=== PATIENT | female | born 1995 | race Caucasian/White ===

== ENCOUNTER 2023-11-19 13:05 | Emergency (ER) | payer SELFPAY ==
[2023-11-19 13:08] VITALS: BP 151/73
[2023-11-19 13:33] LABS: % Basophils 0.3 % (0-2); % Eosinophils 1.2 % (0-6); % Immature Granulocytes 0.3 % (0-0.5); % Lymphocytes 18.3 % (20.5-51.1); % Monocytes 7.1 % (1.7-9.3); % Neutrophils 72.8 % (42.2-75.2); Absolute Eosinophils 0.1 10^3/uL (0-0.7); Absolute Lymphocytes 1.7 10^3/uL (1.2-3.4); Absolute Monocytes 0.7 10^3/uL (0.1-0.6); Absolute Neutrophils 6.9 10^3/uL (1.4-6.5); Hematocrit 38.5 % (37.0-47.0); Hemoglobin 13.3 g/dL (12.0-16.0); Mean Corp Hgb Conc. 34.5 g/dL (33.0-37.0); Mean Corpuscular Hgb 29.6 pg (27.0-31.0); Mean Corpuscular Volume 85.7 fL (81.0-99.0); Mean Platelet Volume 10.2 fL (7.4-10.4); Nucleated Red Blood Cells % 0 %; Platelet Count 256 10^3/uL (130-400); Red Blood Cell Count 4.49 10^6/uL (4.20-5.40); Red Cell Dist. Width 12.5 % (11.5-14.5); White Blood Cell Count 9.5 10^3/uL (4.8-10.8)
[2023-11-19 13:46] LABS: ALT (SGPT) 16 U/L (0-35); AST (SGOT) 26 U/L (14-36); Albumin 4.3 g/dl (3.5-5.0); Alkaline Phosphatase 60 U/L (38-126); Blood Urea Nitrogen 11 mg/dl (7-17); Calcium 9.7 mg/dl (8.4-10.2); Carbon Dioxide 23 mmol/L (22-30); Chloride 102 mmol/L (98-107); Glucose 118 mg/dl (70-99); Potassium 4.2 mmol/L (3.5-5.1); Sodium 133 mmol/L (135-145); Total Bilirubin 0.7 mg/dl (0.2-1.3); Total Protein 6.9 g/dl (6.3-8.2); eGFR > 60.00
[2023-11-19 13:47] LABS: HCG, Serum Qualitative Screen Positive
--- NOTE | 2023-11-19 14:58 | ED.GENMED ---
History of Present Illness
<Katy Humphries PA-C - Last Filed: 11/19/23 20:10>
General
Chief Complaint: Problems
Source: patient
Exam Limitations: none
Time Seen by Provider: 11/19/23 14:58
Nursing documentation reviewed up to this point in time: agreed with
History of Present Illness
History of Present Illness:
This is a 28 y/o female with no past medical history presenting emergency department today with concerns of vaginal bleeding and right-sided pelvic cramping for the past 2 days. Patient estimates she is 5 weeks . Patient's last
menstrual period was November 05. Patient states that yesterday, she got sudden onset of sharp cramping in the right and she started to have bright red bleeding after that with passage of some clots. Patient states that today the bleeding has slowed
but now is brown in color. Patient 1 prior in the past in which she had a miscarriage. Patient does not take any contraceptive currently, no IUD in place. Patient is A positive blood type noted on previous lab work. Patient notes some
mild associated nausea but denies any fevers or chills. Denies any diarrhea or constipation. Patient denies any previous abdominal surgeries. Patient does not have a [facility] that she follows with. Patient is denying anything for pain at this time.
Patient denies any allergies to medications. Patient states that she is , she wishes to be terminated
Past History
<Katy Humphries PA-C - Last Filed: 11/19/23 20:10>
Past History
ED Past Medical History: Arrthythmia (Palpitations); Negative HTN, Hypercholesterolemia or NIDDM
ED Past Surgical History: None
Social History
Tobacco: Former smoker
Alcohol: None
Personal: Single
Living: with family
Employment: Employed
Family History
Family History: Other (Noncontributory)
Review of Systems
<Katy Humphries PA-C - Last Filed: 11/19/23 20:10>
Review of Systems
All Other Systems: ROS reviewed and negative except as documented in HPI and ROS
Phy Exam
<Katy Humphries PA-C - Last Filed: 11/19/23 20:10>
Physical Exam
Physical Exam:
General: Patient is well appearing and in no acute distress; non-toxic
Skin: Warm and dry, no rashes or lesions
Head: Normocephalic, atraumatic
Eyes: Sclera non-icteric. EOMs intact. PERRLA.
Cardiac: Regular rate and rhythm, no murmurs
Peripheral Vascular: No lower extremity swelling or edema
Pulm: Normal respiratory effort, no wheezes, rales, rhonchi
Abdomen: No abdominal tenderness to palpation, some mild right sided pelvic tenderness but no palpable adnexal masses.
Neuro: CN II-XII intact, no focal neurologic deficits.
Psychiatric: Appropriate mood and affect.
Course
<MATI Pruitt Last Filed: 11/19/23 20:10>
Orders/Labs/Results
Orders:
Orders
11/19/23 13:12
Test Result ONCE
11/19/23 13:22
Complete Blood Count/With Diff Urgent
Comprehensive Metabolic Panel Urgent
HCG, Beta Quantitative [Beta HCG Quantitative] Urgent
Is this a screen?: No
HCG, Serum Qualitative Screen Urgent
11/19/23 15:25
US W Transvaginal Urgent
Reason For Exam: right sided pelvic pain, vaginal bleeding, 5wk prg
Abnormal Lab Results
11/19/23
13:22
Absolute Neuts (auto) 6.9 H 10^3/uL
(1.4-6.5)
Absolute Monos (auto) 0.7 H 10^3/uL
(0.1-0.6)
Lymphocytes % 18.3 L %
(20.5-51.1)
Sodium 133 L mmol/L
(135-145)
Glucose 118 H mg/dl
(70-99)
11/19/23 13:22
11/19/23 13:22
Vital Signs
Initial and Last Documented VS:
Initial Vital Signs
Temp Pulse Resp BP Pulse Ox
98.8 F 79 16 151/73 98
11/19/23 13:08 11/19/23 13:08 11/19/23 13:08 11/19/23 13:08 11/19/23 13:08
Last Documented Vital Signs
Temp Pulse Resp BP Pulse Ox
98.8 F 76 18 125/76 100
11/19/23 13:08 11/19/23 18:41 11/19/23 18:41 11/19/23 18:41 11/19/23 18:41
Information
Weeks gestation: Weeks: (6 weeks)
Location: Location: (intrauterine)
<Jose Monterroso, DO - Last Filed: 11/19/23 16:22>
Orders/Labs/Results
Orders:
Orders
11/19/23 13:12
Test Result ONCE
11/19/23 13:22
Complete Blood Count/With Diff Urgent
Comprehensive Metabolic Panel Urgent
HCG, Beta Quantitative [Beta HCG Quantitative] Urgent
Is this a screen?: No
HCG, Serum Qualitative Screen Urgent
11/19/23 15:25
US W Transvaginal Urgent
Reason For Exam: right sided pelvic pain, vaginal bleeding, 5wk prg
Abnormal Lab Results
11/19/23
13:22
Absolute Neuts (auto) 6.9 H 10^3/uL
(1.4-6.5)
Absolute Monos (auto) 0.7 H 10^3/uL
(0.1-0.6)
Lymphocytes % 18.3 L %
(20.5-51.1)
Sodium 133 L mmol/L
(135-145)
Glucose 118 H mg/dl
(70-99)
11/19/23 13:22
11/19/23 13:22
Vital Signs
Initial and Last Documented VS:
Initial Vital Signs
Temp Pulse Resp BP Pulse Ox
98.8 F 79 16 151/73 98
11/19/23 13:08 11/19/23 13:08 11/19/23 13:08 11/19/23 13:08 11/19/23 13:08
Last Documented Vital Signs
Temp Pulse Resp BP Pulse Ox
98.8 F 76 18 125/76 100
11/19/23 13:08 11/19/23 18:41 11/19/23 18:41 11/19/23 18:41 11/19/23 18:41
<Katy Humphries PA-C - Last Filed: 11/19/23 20:10>
MDM/Problems Addressed
Differential Diagnosis Includes:
ddx include miscarriage, threatened miscarriage, ectopic , implantation bleeding
MDM/Problems Addressed:
First trimester vaginal bleeding:
This is a 28 y/o female with no past medical history presenting emergency department today with concerns of vaginal bleeding and right-sided pelvic cramping for the past 2 days. Patient estimates she is 5 weeks . Patient's last
menstrual period was November 05. She is A positive, no indication for rhogam. Vitals are stable, CBC, CMP within normal limits, beta-hCG 69131. Patient is no OB. Ultrasound demonstrates a live duncan intrauterine approximately 6 weeks
and 0 days. Patient stable for discharge, I did give her information for [facility] follow-up.
Chronic conditions affecting care:
n/a
Acute Exacerbation and/or Progression of Chronic Illness:
n/a
<Katy Humphries PA-C - Last Filed: 11/19/23 20:10>
*Pulse Oximetry
Patient hypoxic: no
*Critical Care Note
Total Time (30-74mins, 75-104mins- exclusive of procedures): Not Applicable
Data Reviewed
Review of Other/Old Records Reveals: Records (Reviewed ER physician recommendation from previous visit)
Source: patient and records
<Katy Humphries PA-C - Last Filed: 11/19/23 20:10>
Patient Management
Escalation/DeEscalation of care consider admission/obs:
Admit not indicated, patient stable for discharge.
ED Attending Note
<Katy Humphries PA-C - Last Filed: 11/19/23 20:10>
-
Portions of this chart may have been created with voice recognition software.� Occasional wrong word or��sound alike� substitutions may have occurred due to the inherent limitations of voice recognition software.
<Jose Monterroso DO - Last Filed: 11/19/23 16:22>
ED Attending Note
Patient seen and examined by attending physician: Yes
I performed the substantive portion of visit, reviewed & personally made and approve the management plan that is documented in note by myself or LUZ ELENA.: Yes
ED Attending Note:
I have seen and evaluated the patient with a [id number] encounter. I have spoken to the advance practicer provider and involved in the medical history, the physical exam, medical decision making.
Evaluation and management service: agree unless noted differently below.
Results interpretation: agree unless noted differently below.
Focused HPI: 28-year-old female presenting with vaginal spotting and mild cramping. This occurred earlier today. She believes she is about 5 weeks . She is G2, P0. She states her first ended in miscarriage as well. Patient
states she just wants to make sure whether this is the beginning of a miscarriage or not. She had already mentioned that her plan is to not keep this which is why she has not started care
Physical exam: Sitting bed comfortably. Abdomen soft and nontender
Medical Decision Making: We did discuss the possibility of normal early , possible early miscarriage and possible ectopic but indicated that she is too early that the diagnosis may not be clear-cut. She understands that if that is the
case, she needs her blood work rechecked in the next few days. Prior records indicate that her blood type is A+
Discharge Plan
Departure
Patient Disposition: Home (Routine Discharge)
Date of Disposition: 11/19/23
Time of Disposition: 18:49
Patient with high blood pressure during this ER visit?: Yes
Condition: Good
Discharge Problem:
Threatened miscarriage
Instructions: Threatened Miscarriage (DC), BLOOD PRESSURE
Prescriptions:
No Action
pantoprazole 40 MG tablet,delayed release (DR/EC)
40 mg PO DAILY Qty: 10 0RF
Referrals:
Celia Nowak, DO [Active] - Call in 1-3 days for appt
NONE,* [Family Provider] -
Activity Restrictions/Additional Instructions:
Please return should you feel lightheaded, dizzy, increasing pain, further passage of blood, chest pain, shortness of breath, or any other concerning signs or symptoms.
Please follow up with OBGYN.
Interventions
Interventions:
*Risk Screen - Suicide Last Done: 11/19/23 18:56
*General Assessment Last Done: 11/19/23 18:56
*Neglect/Abuse Screening Last Done: 11/19/23 18:56
ED- Fall Risk Assessment Last Done: 11/19/23 18:56
*ED COVID-19 Vaccine History Last Done: 11/19/23 13:08
*Nursing Disposition Last Done: 11/19/23 18:56
ED-Female Genitourinary Assessment Last Done: 11/19/23 15:36
Discharge Date and Time
Discharge Date/Time: 11/19/23 18:56
Print Language: ESTONIAN
[2023-11-19 18:41] VITALS: BP 125/76
== END 2023-11-19 18:56 | disposition home or self-care (01) ==
LOC: EMR 13:05
PROVIDERS: Emergency Medicine; EMERGENCY PHYSICIAN Student in an Organized Health Care Education/Training Program
DX: O20.0 Threatened abortion (principal); Z3A.01 Less than 8 weeks gestation of pregnancy; R03.0 Elevated blood-pressure reading, without diagnosis of hypertension
CPT/HCPCS: 99284; 76801; 76817; 80053; 84702; 84703; 85025